=== PATIENT | male | born 1970 | race Caucasian/White ===

== ENCOUNTER 2016-10-04 14:54 | Emergency (ER) | payer OTHER ==
[2016-10-04] MEDS ORDERED: GI COCKTAIL 50ML BTL(HYOSCYAMINE/MAALOX/LIDOCAINE VISCOUS)(1:3:1) As Ordered ONE (15:53)
[2016-10-04] MEDS ORDERED: ONDANSETRON 4MG/2ML VIAL (J2405) As Ordered ONE (15:53)
[2016-10-04 16:07] LABS: BASO # 0.1 K/mm3 (0.0-0.2); EOS # 0.2 K/mm3 (0.0-0.50); EOS % 1.6 % (0.0-3.0); LARGE UNSTAINED CELL # 0.3 K/mm3 (0.0-0.4); LARGE UNSTAINED CELL % 2.8 % (0.0-4.0); LYMPH # 2.8 K/mm3 (1.5-4.5); LYMPH % 26.3 % (24.0-44.0); MEAN CORPUSCULAR HEMOGLOBIN 33.6 pg (27.0-33.0); MEAN CORPUSCULAR HGB CONC 34.7 g/dl (32.0-36.5); MEAN CORPUSCULAR VOLUME 96.9 fl (80.0-96.0); MONO # 0.6 K/mm3 (0.0-0.8); MONO % 6.3 % (0.0-5.0); PLATELET COUNT, AUTOMATED 195 k/mm3 (150-450); WHITE BLOOD COUNT 9.6 K/mm3 (4.0-10.0)
[2016-10-04 16:28] LABS: INR 0.98
[2016-10-04 16:40] LABS: ALBUMIN 4.2 GM/DL (3.2-5.2); ALBUMIN/GLOBULIN RATIO 1.17 (1.00-1.93); ALKALINE PHOSPHATASE 63 U/L (45-117); ALT/SGPT 36 U/L (12-78); AMYLASE 62 U/L (25-115); ANION GAP 8 MEQ/L (8-16); AST/SGOT 25 U/L (15-37); BILIRUBIN,DIRECT 0.1 MG/DL (0.0-0.2); BILIRUBIN,TOTAL 0.3 MG/DL (0.2-1.0); BLOOD UREA NITROGEN 19 MG/DL (7-18); CALCIUM LEVEL 9.8 MG/DL (8.5-10.1); CARBON DIOXIDE LEVEL 30 MEQ/L (21-32); CHLORIDE LEVEL 104 MEQ/L (98-107); CREATININE FOR GFR 1.05 MG/DL (0.70-1.30); GLOMERULAR FILTRATION RATE > 60.0 (>60); GLUCOSE, FASTING 80 MG/DL (70-105); POTASSIUM SERUM 4.4 MEQ/L (3.5-5.1); SODIUM LEVEL 142 MEQ/L (136-145); TOTAL PROTEIN 7.8 GM/DL (6.4-8.2)
--- NOTE | 2016-10-04 17:08 | EDDOCDS ---
Nurse's Notes [facility] Name: Mc Harman Age: 46 yrs Sex: Male : 1970 Arrival Date: 10/04/2016 Time: 14:54 Bed I5 / M5 Private MD: Chris Broderick M Diagnosis: Gastro-esophageal reflux disease;Constipation, unspecified Presentation: 10/04 14:57 Presenting complaint: Patient states: upper abdominal pains since yesterday at 10 am. dy pain in epigastric area with pressure and burning feeling. Adult Sepsis Screening: The patient does not have new or worsening altered mentation. Patient's respiratory rate is less than 22. Systolic blood pressure is greater than 100. Patient has a qSOFA score of 0- Negative Sepsis Screen. Suicide/Homicide risk assessment- the patient denies having any suicidal and/or homicidal ideations and does not present with any other emotional, behavioral or mental health complaints. Status: Patient is not a customer service trainer or dependent. Transition of care: patient was not received from another setting of care. 14:57 Acuity: TERESITA Level 3 dy 14:57 Method Of Arrival: Walkin/Carried/Asstd dy Triage Assessment: 14:59 General: Appears in no apparent distress. Pain: Location: epigastric area. HIV dy screening NA for this visit Offered previously. GI: Reports epigastric pain. Historical: - Allergies: No known drug Allergies; - Home Meds: 1. Claritin 10 mg Oral tab 1 tab once daily 2. Aleve 220 mg Oral tab 1 tab every 12 hours (Last dose: 10/03/2016) - PMHx: Allergies, Seasonal; joint pain; - PSHx: Carpal Tunnel Repair- Bilateral; - Social history: Smoking status: Patient states former smoker of tobacco. No barriers to communication noted, The patient speaks fluent Faroese, Speaks appropriately for age. - Family history: Not pertinent. - : The pt / caregiver states he / she is not on anticoagulants. Home medication list is obtained from the patient. - Exposure Risk Screening:: None identified. Screenin:53 Screening information is obtained from the patient. Fall risk: No risks identified. ck1 Assistance ADL's: requires no assistance with activities of daily living. Abuse/DV Screen: The patient / caregiver reports he/she is: not in a situation that causes fear, pain or injury. Nutritional screening: No deficits noted. Advance Directives: Currently, there is no health care proxy. home support is adequate. Assessment: 15:53 General: Appears in no apparent distress, comfortable, Behavior is appropriate for age, ck1 cooperative. Pain: Location: epigastric area Pain At worst was 6 out of 10 on a pain scale. GI: Abdomen is non- distended Bowel sounds present X 4 quads. Abd is soft and non tender X 4 quads. Reports epigastric pain. : No deficits noted. Derm: Skin is intact, is healthy with good turgor, Skin is pink, warm & dry. 17:06 General: Appears in no apparent distress, comfortable, Behavior is appropriate for age, ck1 cooperative. Pain: Denies pain. Neurological: Level of Consciousness is awake, alert, obeys commands, Oriented to person, place, time. Respiratory: Respiratory effort is unlabored, Respiratory pattern is regular, symmetrical. GI: Denies epigastric pain, nausea, vomiting. : No deficits noted. Derm: Skin is intact, is healthy with good turgor, Skin is pink, warm & dry. Vital Signs: 14:55 BP 148 / 76; Pulse 82; Resp 16; Temp 96.5(O); Pulse Ox 97% ; Weight 95.71 kg; Height 5 cmb ft. 6 in. (167.64 cm); Pain 7/10; 17:04 BP 145 / 86; Pulse 81; Resp 18; Temp 97.1(O); Pulse Ox 97% on R/A; Pain 2/10; jrd 14:55 Body Mass Index 34.06 (95.71 kg, 167.64 cm) cmb Vitals: 14:55 Log In Time: October 04, 2016 at 14:54. cmb ED Course: 14:55 Patient visited by Cherise Cerna. cmb 14:55 Chris Broderick is Private Physician. cmb 14:55 Patient moved to Waiting cmb 14:57 Patient moved to Pre RCE cmb 14:58 Triage Initiated dy 15:28 Patient moved to Triage 3 jf3 15:33 Franki Delong FNP is [facility]. ke 15:33 Patient visited by Franki Delong FNP. ke 15:33 Patient visited by Franki Delong FNP. ke 15:41 Patient moved to I5 / M5 jf3 15:52 Patient visited by Lexie Howell,SALVADOR. ck1 15:52 Amylase Sent. ck1 15:53 The patient / caregiver is instructed regarding the plan of care and ED course. ck1 15:53 Basic Metabolic Profile Sent. ck1 15:53 CBC with Diff Sent. ck1 15:53 Lipase Sent. ck1 15:53 Liver Profile Sent. ck1 15:53 Prothrombin Time Profile\E\INR Sent. ck1 15:53 Inserted saline lock: 20 gauge in right antecubital area and blood collected. The ck1 patient tolerated the procedure well. 16:02 Patient visited by Layne Rivas,SALVADOR. kc3 16:32 Patient visited by Franki Delong FNP. ke 16:55 Chris Broderick is Referral Physician. ke 17:04 Patient visited by Clarke Martinez PCA. jrd 17:06 Discontinued lock intact, bleeding controlled, pressure dressing applied, No ck1 redness/swelling at site. No procedures done that require assistance. Administered Medications: 16:01 Drug: NS 0.9% 1000 ml [sodium chloride 0.9 % intravenous solution] Route: IV; Rate: kc3 bolus; Site: right antecubital; 16:01 Drug: Ondansetron 4 mg [ondansetron HCl 2 mg/mL intravenous solution (2 mL)] Route: kc3 IVP; Site: right antecubital; 16:01 Drug: GI Cocktail - (Alum-Mag Hydroxide-Simeth Suspension 225 mg-200 mg-25 mg/5 mL 30 kc3 ml, Lidocaine Liquid 2 % 10 ml, Hyoscyamine Liquid 10 ml) Route: PO; Order Results: Lab Order: Amylase; SPEC'M 10/04/16 15:51 Test: AMYLASE; Value: 62; Range: 25-115; Units: U/L; Status: F Lab Order: Basic Metabolic Profile; SPEC'M 10/04/16 15:51 Test: GLUCOSE, FASTING; Value: 80; Range: 70-105; Units: MG/DL; Status: F Test: BLOOD UREA NITROGEN; Value: 19; Range: 7-18; Abnormal: Above high normal; Units: MG/DL; Status: F Test: CREATININE FOR GFR; Value: 1.05; Range: 0.70-1.30; Units: MG/DL; Status: F Test: GLOMERULAR FILTRATION RATE; Value: > 60.0; Range: >60; Status: F Test: SODIUM LEVEL; Value: 142; Range: 136-145; Units: MEQ/L; Status: F Test: POTASSIUM SERUM; Value: 4.4; Range: 3.5-5.1; Units: MEQ/L; Status: F Test: CHLORIDE LEVEL; Value: 104; Range: 98-107; Units: MEQ/L; Status: F Test: CARBON DIOXIDE LEVEL; Value: 30; Range: 21-32; Units: MEQ/L; Status: F Test: ANION GAP; Value: 8; Range: 8-16; Units: MEQ/L; Status: F Test: CALCIUM LEVEL; Value: 9.8; Range: 8.5-10.1; Units: MG/DL; Status: F Test Note: ; Units are mL/min/1.73 m2 Chronic Kidney Disease Staging per NKF: Stage I & II GFR >=60 Normal to Mildly Decreased Stage III GFR 30-59 Moderately Decreased Stage IV GFR 15-29 Severely Decreased Stage V GFR <15 Very Little GFR Left ESRD GFR <15 on CUFF SETTER Lab Order: CBC with Diff; SPEC'M 10/04/16 15:51 Test: WHITE BLOOD COUNT; Value: 9.6; Range: 4.0-10.0; Units: K/mm3; Status: F Test: RED BLOOD COUNT; Value: 4.55; Range: 4.30-6.10; Units: M/mm3; Status: F Test: HEMOGLOBIN; Value: 15.3; Range: 14.0-18.0; Units: g/dl; Status: F Test: HEMATOCRIT; Value: 44.1; Range: 42.0-52.0; Units: %; Status: F Test: MEAN CORPUSCULAR VOLUME; Value: 96.9; Range: 80.0-96.0; Abnormal: Above high normal; Units: fl; Status: F Test: MEAN CORPUSCULAR HEMOGLOBIN; Value: 33.6; Range: 27.0-33.0; Abnormal: Above high normal; Units: pg; Status: F Test: MEAN CORPUSCULAR HGB CONC; Value: 34.7; Range: 32.0-36.5; Units: g/dl; Status: F Test: RED CELL DISTRIBUTION WIDTH; Value: 13.0; Range: 11.5-14.5; Units: %; Status: F Test: PLATELET COUNT, AUTOMATED; Value: 195; Range: 150-450; Units: k/mm3; Status: F Test: NEUTROPHILS %; Value: 62.0; Range: 36.0-66.0; Units: %; Status: F Test: LYMPH %; Value: 26.3; Range: 24.0-44.0; Units: %; Status: F Test: MONO %; Value: 6.3; Range: 0.0-5.0; Abnormal: Above high normal; Units: %; Status: F Test: EOS %; Value: 1.6; Range: 0.0-3.0; Units: %; Status: F Test: BASO %; Value: 1.0; Range: 0.0-1.0; Units: %; Status: F Test: LARGE UNSTAINED CELL %; Value: 2.8; Range: 0.0-4.0; Units: %; Status: F Test: NEUTROPHILS #; Value: 6.0; Range: 1.8-7.7; Units: K/mm3; Status: F Test: LYMPH #; Value: 2.8; Range: 1.5-4.5; Units: K/mm3; Status: F Test: MONO #; Value: 0.6; Range: 0.0-0.8; Units: K/mm3; Status: F Test: EOS #; Value: 0.2; Range: 0.0-0.50; Units: K/mm3; Status: F Test: BASO #; Value: 0.1; Range: 0.0-0.2; Units: K/mm3; Status: F Test: LARGE UNSTAINED CELL #; Value: 0.3; Range: 0.0-0.4; Units: K/mm3; Status: F Lab Order: Lipase; SPEC'M 10/04/16 15:51 Test: LIPASE; Value: 253; Range: 73-393; Units: U/L; Status: F Lab Order: Liver Profile; SPEC'M 10/04/16 15:51 Test: AST/SGOT; Value: 25; Range: 15-37; Units: U/L; Status: F Test: ALT/SGPT; Value: 36; Range: 12-78; Units: U/L; Status: F Test: ALKALINE PHOSPHATASE; Value: 63; Range: 45-117; Units: U/L; Status: F Test: BILIRUBIN,TOTAL; Value: 0.3; Range: 0.2-1.0; Units: MG/DL; Status: F Test: BILIRUBIN,DIRECT; Value: 0.1; Range: 0.0-0.2; Units: MG/DL; Status: F Test: TOTAL PROTEIN; Value: 7.8; Range: 6.4-8.2; Units: GM/DL; Status: F Test: ALBUMIN; Value: 4.2; Range: 3.2-5.2; Units: GM/DL; Status: F Test: ALBUMIN/GLOBULIN RATIO; Value: 1.17; Range: 1.00-1.93; Status: F Lab Order: Prothrombin Time Profile\E\INR; SPEC'M 10/04/16 15:51 Test: PROTHROMBIN TIME; Value: 13.1; Range: 12.3-14.5; Units: SECONDS; Status: F Test: INR; Value: 0.98; Status: F Test Note: ; THERAPUTIC HUMAN INR VALUES INDICATIONS NORMAL RANGES PROPHYLAXIS/TREATMENT OF: VENOUS THROMBOSIS 2.0-3.0 PULMONARY EMBOLISM 2.0-3.0 PREVENTION OF SYSTEMIC EMBOLISM FROM: TISSUE HEART VALVES 2.0-3.0 ACUTE MYOCARDIAL INFARCTION 2.0-3.0 VALVULAR HEART DISEASE 2.0-3.0 ATRIAL FIBRILLATION 2.0-3.0 MECHANICAL VALVES(HIGH RISK) 2.5-3.5 RECURRENT MYOCARDIAL INFARCTION 2.5-3.5 Outcome: 16:55 Discharge ordered by Provider. ke 17:06 Discharge Assessment: Patient awake, alert and oriented x 3. No cognitive and/or ck1 functional deficits noted. Patient verbalized understanding of disposition instructions. patient administered narcotics - no. The following High Risk Discharge criteria are identified: None. Discharged to home ambulatory, with significant other. Condition: stable. Discharge instructions given to patient, Instructed on discharge instructions, follow up and referral plans. medication usage, Demonstrated understanding of instructions, medications, Pt was receptive of discharge instructions/ teaching. Prescriptions given X 2. No special radiology studies were completed. Property :Personal belongings accompany Pt. 17:07 Patient left the ED. ck1 Signatures: Colton Wynne, RN RN dy Franki Delong, APARTMENT ASSISTANT MANAGER APARTMENT ASSISTANT MANAGER Lexie CornejoRN RN ck1 Cherise Cerna cmb Clarke Martinez, DARBY RIDING COACH jrd Layne Rivas,RN RN kc3 Manuel Randolph,RN RN jf3 MTDD
--- NOTE | 2016-10-04 17:08 | EDDOCDS ---
Physician Documentation [facility] Name: Mc Harman Age: 46 yrs Sex: Male : 1970 Arrival Date: 10/04/2016 Time: 14:54 Bed I5 / M5 Private MD: Chris Broderick M Disposition: 10/04/16 16:55 Discharged to Home/Self Care. Impression: Gastro-esophageal reflux disease, Constipation, unspecified. - Condition is Stable. - Discharge Instructions: Constipation, Adult, Gastroesophageal Reflux Disease, Adult. - Prescriptions for Zantac 300 mg Oral Tablet - take 1 tablet by ORAL route At bedtime; 30 tablet. Miralax 17 gram/dose - take 17 gram by ORAL route once daily As needed dilute in 8 ounces of water or juice; 1 bottle. - Medication Reconciliation, Local Pharmacy Hours form. - Follow up: Chris Broderick; When: 4 - 5 days; Reason: Recheck today's complaints, Continuance of care. - Problem is an ongoing problem. - Symptoms are unchanged. Historical: - Allergies: No known drug Allergies; - Home Meds: 1. Claritin 10 mg Oral tab 1 tab once daily 2. Aleve 220 mg Oral tab 1 tab every 12 hours (Last dose: 10/03/2016) - PMHx: Allergies, Seasonal; joint pain; - PSHx: Carpal Tunnel Repair- Bilateral; - Social history: Smoking status: Patient states former smoker of tobacco. No barriers to communication noted, The patient speaks fluent Sudanese, Speaks appropriately for age. - Family history: Not pertinent. - : The pt / caregiver states he / she is not on anticoagulants. Home medication list is obtained from the patient. - Exposure Risk Screening:: None identified. Vital Signs: 10/04 14:55 BP 148 / 76; Pulse 82; Resp 16; Temp 96.5(O); Pulse Ox 97% ; Weight 95.71 kg / 211 lbs; cmb Height 5 ft. 6 in. (167.64 cm); Pain 7/10; 17:04 BP 145 / 86; Pulse 81; Resp 18; Temp 97.1(O); Pulse Ox 97% on R/A; Pain 2/10; jrd 14:55 Body Mass Index 34.06 (95.71 kg, 167.64 cm) cmb MDM: 15:39 NS 0.9% 1000 ml IV at bolus once ordered. ke 15:39 Ondansetron 4 mg IVP once ordered. ke 15:39 IV Saline Lock ordered. ke 15:39 Undress patient appropriately for examination ordered. ke 15:39 GI Cocktail - (Alum-Mag Hydroxide-Simeth 30 ml, Lidocaine 10 ml, Hyoscyamine 10 ml) PO ke once; Pre-mixed 50mL unit dose ordered. 15:40 Abdomen, Flat\E\Upright,PA Chest Ordered. EDMS 15:40 Amylase Ordered. EDMS 15:40 Basic Metabolic Profile Ordered. EDMS 15:40 CBC with Diff Ordered. EDMS 15:40 Lipase Ordered. EDMS 15:40 Liver Profile Ordered. EDMS 15:40 Prothrombin Time Profile\E\INR Ordered. EDMS 15:41 NOTHING BY MOUTH+DIET ordered. EDMS 16:52 Basic Metabolic Profile Reviewed. ke 16:52 CBC with Diff Reviewed. ke 16:52 Amylase Reviewed. ke 16:52 Lipase Reviewed. ke 16:52 Liver Profile Reviewed. ke 16:52 Prothrombin Time Profile\E\INR Reviewed. ke Administered Medications: 16:01 Drug: NS 0.9% 1000 ml [sodium chloride 0.9 % intravenous solution] Route: IV; Rate: kc3 bolus; Site: right antecubital; 16:01 Drug: Ondansetron 4 mg [ondansetron HCl 2 mg/mL intravenous solution (2 mL)] Route: kc3 IVP; Site: right antecubital; 16:01 Drug: GI Cocktail - (Alum-Mag Hydroxide-Simeth Suspension 225 mg-200 mg-25 mg/5 mL 30 kc3 ml, Lidocaine Liquid 2 % 10 ml, Hyoscyamine Liquid 10 ml) Route: PO; Signatures: Dispatcher [employer] EDID Colton Wynne, RN Franki Richardson, DATA SECURITY ADMINISTRATOR DATA SECURITY ADMINISTRATOR Lexie Cornejo,RN RN Layne Miller RN kc3 MTDD
--- NOTE | 2016-10-05 17:15 | REP ---
Abdominal series 10/04/2016 Indication: Abdominal pain Comparison: PA and lateral chest 08/03/2015, CT abdomen and pelvis 10/23/2014 PA chest Findings: The cardiomediastinal silhouette is normal. Small amount of epicardial fat is seen in the left cardiophrenic angle. A small amount of bibasilar fibro atelectatic changes are noted, stable. Bones and soft tissues are within normal limits. Impression: mild bibasilar fibro atelectatic changes, stable Normal cardiomediastinal silhouette Flat and upright KUB 10/04/2016 There is moderate diffuse retained colonic stool yet most pronounced within the ascending colon. The bowel gas pattern is nonspecific and there is no free intraperitoneal air. There is mild narrowing within the right hip joint. Impression 1. Moderate diffuse retained colonic stool yet most pronounced within the right colon. No free intraperitoneal air 2. There is mild narrowing within the right hip joint Signed by Kimberli James MD 10/05/2016 05:07 P
--- NOTE | 2016-10-06 18:08 | EDDOCDS ---
Physician Documentation [facility] Name: Mc Harman Age: 46 yrs Sex: Male : 1970 Arrival Date: 10/04/2016 Time: 14:54 Bed I5 / M5 Private MD: Chris Broderick M Disposition: 10/04/16 16:55 Discharged to Home/Self Care. Impression: Gastro-esophageal reflux disease, Constipation, unspecified. - Condition is Stable. - Discharge Instructions: Constipation, Adult, Gastroesophageal Reflux Disease, Adult. - Prescriptions for Zantac 300 mg Oral Tablet - take 1 tablet by ORAL route At bedtime; 30 tablet. Miralax 17 gram/dose - take 17 gram by ORAL route once daily As needed dilute in 8 ounces of water or juice; 1 bottle. - Medication Reconciliation, Local Pharmacy Hours form. - Follow up: Chris Broderick; When: 4 - 5 days; Reason: Recheck today's complaints, Continuance of care. - Problem is an ongoing problem. - Symptoms are unchanged. Historical: - Allergies: No known drug Allergies; - Home Meds: 1. Claritin 10 mg Oral tab 1 tab once daily 2. Aleve 220 mg Oral tab 1 tab every 12 hours (Last dose: 10/03/2016) - PMHx: Allergies, Seasonal; joint pain; - PSHx: Carpal Tunnel Repair- Bilateral; - Social history: Smoking status: Patient states former smoker of tobacco. No barriers to communication noted, The patient speaks fluent Faroese, Speaks appropriately for age. - Family history: Not pertinent. - : The pt / caregiver states he / she is not on anticoagulants. Home medication list is obtained from the patient. - Exposure Risk Screening:: None identified. Vital Signs: 10/04 14:55 BP 148 / 76; Pulse 82; Resp 16; Temp 96.5(O); Pulse Ox 97% ; Weight 95.71 kg / 211 lbs; cmb Height 5 ft. 6 in. (167.64 cm); Pain 7/10; 17:04 BP 145 / 86; Pulse 81; Resp 18; Temp 97.1(O); Pulse Ox 97% on R/A; Pain 2/10; jrd 14:55 Body Mass Index 34.06 (95.71 kg, 167.64 cm) cmb MDM: 15:39 NS 0.9% 1000 ml IV at bolus once ordered. ke 15:39 Ondansetron 4 mg IVP once ordered. ke 15:39 IV Saline Lock ordered. ke 15:39 Undress patient appropriately for examination ordered. ke 15:39 GI Cocktail - (Alum-Mag Hydroxide-Simeth 30 ml, Lidocaine 10 ml, Hyoscyamine 10 ml) PO ke once; Pre-mixed 50mL unit dose ordered. 15:40 Abdomen, Flat\E\Upright,PA Chest Ordered. EDMS 15:40 Amylase Ordered. EDMS 15:40 Basic Metabolic Profile Ordered. EDMS 15:40 CBC with Diff Ordered. EDMS 15:40 Lipase Ordered. EDMS 15:40 Liver Profile Ordered. EDMS 15:40 Prothrombin Time Profile\E\INR Ordered. EDMS 15:41 NOTHING BY MOUTH+DIET ordered. EDMS 16:52 Basic Metabolic Profile Reviewed. ke 16:52 CBC with Diff Reviewed. ke 16:52 Amylase Reviewed. ke 16:52 Lipase Reviewed. ke 16:52 Liver Profile Reviewed. ke 16:52 Prothrombin Time Profile\E\INR Reviewed. ke 17:12 [facility] Payment Agreement was scanned into [employer] and attached to record. [facility] 17:12 Financial registration complete. [facility] 10/05 10:05 T-Sheet-- Draft Copy was scanned into [employer] and attached to record. gb Administered Medications: 10/04 16:01 Drug: NS 0.9% 1000 ml [sodium chloride 0.9 % intravenous solution] Route: IV; Rate: kc3 bolus; Site: right antecubital; 16:01 Drug: Ondansetron 4 mg [ondansetron HCl 2 mg/mL intravenous solution (2 mL)] Route: kc3 IVP; Site: right antecubital; 16:01 Drug: GI Cocktail - (Alum-Mag Hydroxide-Simeth Suspension 225 mg-200 mg-25 mg/5 mL 30 kc3 ml, Lidocaine Liquid 2 % 10 ml, Hyoscyamine Liquid 10 ml) Route: PO; Signatures: Dispatcher [employer] EDMS Laure Ruiz, Reg Reg gb Colton Wynne, RN Franki Richardson, FARM OPERATIONS TECHNICAL DIRECTOR FARM OPERATIONS TECHNICAL DIRECTOR Lexie Cornejo RN RN ck1 Carine Knutson b Layne Rivas RN kc3 The chart was reviewed and I authenticate all verbal orders and agree with the evaluation and treatment provided.Attachments: 17:12 [facility] Payment Agreement gjb 10/05 10:05 T-Sheet-- Draft Copy gb Chart Complete MTDD
--- NOTE | 2016-10-06 18:08 | EDDOCDS ---
Physician Documentation [facility] Name: Mc Haramn Age: 46 yrs Sex: Male : 1970 Arrival Date: 10/04/2016 Time: 14:54 Bed I5 / M5 Private MD: Chris Broderick M Disposition: 10/04/16 16:55 Discharged to Home/Self Care. Impression: Gastro-esophageal reflux disease, Constipation, unspecified. - Condition is Stable. - Discharge Instructions: Constipation, Adult, Gastroesophageal Reflux Disease, Adult. - Prescriptions for Zantac 300 mg Oral Tablet - take 1 tablet by ORAL route At bedtime; 30 tablet. Miralax 17 gram/dose - take 17 gram by ORAL route once daily As needed dilute in 8 ounces of water or juice; 1 bottle. - Medication Reconciliation, Local Pharmacy Hours form. - Follow up: Chris Broderick; When: 4 - 5 days; Reason: Recheck today's complaints, Continuance of care. - Problem is an ongoing problem. - Symptoms are unchanged. Historical: - Allergies: No known drug Allergies; - Home Meds: 1. Claritin 10 mg Oral tab 1 tab once daily 2. Aleve 220 mg Oral tab 1 tab every 12 hours (Last dose: 10/03/2016) - PMHx: Allergies, Seasonal; joint pain; - PSHx: Carpal Tunnel Repair- Bilateral; - Social history: Smoking status: Patient states former smoker of tobacco. No barriers to communication noted, The patient speaks fluent Lao, Speaks appropriately for age. - Family history: Not pertinent. - : The pt / caregiver states he / she is not on anticoagulants. Home medication list is obtained from the patient. - Exposure Risk Screening:: None identified. Vital Signs: 10/04 14:55 BP 148 / 76; Pulse 82; Resp 16; Temp 96.5(O); Pulse Ox 97% ; Weight 95.71 kg / 211 lbs; cmb Height 5 ft. 6 in. (167.64 cm); Pain 7/10; 17:04 BP 145 / 86; Pulse 81; Resp 18; Temp 97.1(O); Pulse Ox 97% on R/A; Pain 2/10; jrd 14:55 Body Mass Index 34.06 (95.71 kg, 167.64 cm) cmb MDM: 15:39 NS 0.9% 1000 ml IV at bolus once ordered. ke 15:39 Ondansetron 4 mg IVP once ordered. ke 15:39 IV Saline Lock ordered. ke 15:39 Undress patient appropriately for examination ordered. ke 15:39 GI Cocktail - (Alum-Mag Hydroxide-Simeth 30 ml, Lidocaine 10 ml, Hyoscyamine 10 ml) PO ke once; Pre-mixed 50mL unit dose ordered. 15:40 Abdomen, Flat\E\Upright,PA Chest Ordered. EDMS 15:40 Amylase Ordered. EDMS 15:40 Basic Metabolic Profile Ordered. EDMS 15:40 CBC with Diff Ordered. EDMS 15:40 Lipase Ordered. EDMS 15:40 Liver Profile Ordered. EDMS 15:40 Prothrombin Time Profile\E\INR Ordered. EDMS 15:41 NOTHING BY MOUTH+DIET ordered. EDMS 16:52 Basic Metabolic Profile Reviewed. ke 16:52 CBC with Diff Reviewed. ke 16:52 Amylase Reviewed. ke 16:52 Lipase Reviewed. ke 16:52 Liver Profile Reviewed. ke 16:52 Prothrombin Time Profile\E\INR Reviewed. ke 17:12 [facility] Payment Agreement was scanned into [employer] and attached to record. [facility] 17:12 Financial registration complete. [facility] 10/05 10:05 T-Sheet-- Draft Copy was scanned into [employer] and attached to record. gb Administered Medications: 10/04 16:01 Drug: NS 0.9% 1000 ml [sodium chloride 0.9 % intravenous solution] Route: IV; Rate: kc3 bolus; Site: right antecubital; 16:01 Drug: Ondansetron 4 mg [ondansetron HCl 2 mg/mL intravenous solution (2 mL)] Route: kc3 IVP; Site: right antecubital; 16:01 Drug: GI Cocktail - (Alum-Mag Hydroxide-Simeth Suspension 225 mg-200 mg-25 mg/5 mL 30 kc3 ml, Lidocaine Liquid 2 % 10 ml, Hyoscyamine Liquid 10 ml) Route: PO; Signatures: Dispatcher [employer] EDMS Laure Ruiz, Reg Reg gb Colton Wynne, RN Franki Richardson, SALES STORE CHECKER SALES STORE CHECKER Lexie Cornejo RN RN ck1 Carine Knutson b Layne Rivas RN kc3 The chart was reviewed and I authenticate all verbal orders and agree with the evaluation and treatment provided.Attachments: 17:12 [facility] Payment Agreement gjb 10/05 10:05 T-Sheet-- Draft Copy gb Chart Complete MTDD
--- NOTE | 2016-10-06 18:08 | EDDOCDS ---
Nurse's Notes [facility] Name: Mc Harman Age: 46 yrs Sex: Male : 1970 Arrival Date: 10/04/2016 Time: 14:54 Bed I5 / M5 Private MD: Chris Broderick M Diagnosis: Gastro-esophageal reflux disease;Constipation, unspecified Presentation: 10/04 14:57 Presenting complaint: Patient states: upper abdominal pains since yesterday at 10 am. dy pain in epigastric area with pressure and burning feeling. Adult Sepsis Screening: The patient does not have new or worsening altered mentation. Patient's respiratory rate is less than 22. Systolic blood pressure is greater than 100. Patient has a qSOFA score of 0- Negative Sepsis Screen. Suicide/Homicide risk assessment- the patient denies having any suicidal and/or homicidal ideations and does not present with any other emotional, behavioral or mental health complaints. Status: Patient is not a interlibrary loan services librarian or dependent. Transition of care: patient was not received from another setting of care. 14:57 Acuity: TERESITA Level 3 dy 14:57 Method Of Arrival: Walkin/Carried/Asstd dy Triage Assessment: 14:59 General: Appears in no apparent distress. Pain: Location: epigastric area. HIV dy screening NA for this visit Offered previously. GI: Reports epigastric pain. Historical: - Allergies: No known drug Allergies; - Home Meds: 1. Claritin 10 mg Oral tab 1 tab once daily 2. Aleve 220 mg Oral tab 1 tab every 12 hours (Last dose: 10/03/2016) - PMHx: Allergies, Seasonal; joint pain; - PSHx: Carpal Tunnel Repair- Bilateral; - Social history: Smoking status: Patient states former smoker of tobacco. No barriers to communication noted, The patient speaks fluent Macedonian, Speaks appropriately for age. - Family history: Not pertinent. - : The pt / caregiver states he / she is not on anticoagulants. Home medication list is obtained from the patient. - Exposure Risk Screening:: None identified. Screenin:53 Screening information is obtained from the patient. Fall risk: No risks identified. ck1 Assistance ADL's: requires no assistance with activities of daily living. Abuse/DV Screen: The patient / caregiver reports he/she is: not in a situation that causes fear, pain or injury. Nutritional screening: No deficits noted. Advance Directives: Currently, there is no health care proxy. home support is adequate. Assessment: 15:53 General: Appears in no apparent distress, comfortable, Behavior is appropriate for age, ck1 cooperative. Pain: Location: epigastric area Pain At worst was 6 out of 10 on a pain scale. GI: Abdomen is non- distended Bowel sounds present X 4 quads. Abd is soft and non tender X 4 quads. Reports epigastric pain. : No deficits noted. Derm: Skin is intact, is healthy with good turgor, Skin is pink, warm & dry. 17:06 General: Appears in no apparent distress, comfortable, Behavior is appropriate for age, ck1 cooperative. Pain: Denies pain. Neurological: Level of Consciousness is awake, alert, obeys commands, Oriented to person, place, time. Respiratory: Respiratory effort is unlabored, Respiratory pattern is regular, symmetrical. GI: Denies epigastric pain, nausea, vomiting. : No deficits noted. Derm: Skin is intact, is healthy with good turgor, Skin is pink, warm & dry. Vital Signs: 14:55 BP 148 / 76; Pulse 82; Resp 16; Temp 96.5(O); Pulse Ox 97% ; Weight 95.71 kg; Height 5 cmb ft. 6 in. (167.64 cm); Pain 7/10; 17:04 BP 145 / 86; Pulse 81; Resp 18; Temp 97.1(O); Pulse Ox 97% on R/A; Pain 2/10; jrd 14:55 Body Mass Index 34.06 (95.71 kg, 167.64 cm) cmb Vitals: 14:55 Log In Time: October 04, 2016 at 14:54. cmb ED Course: 14:55 Patient visited by Cherise Cerna. cmb 14:55 Chris Broderick is Private Physician. cmb 14:55 Patient moved to Waiting cmb 14:57 Patient moved to Pre RCE cmb 14:58 Triage Initiated dy 15:28 Patient moved to Triage 3 jf3 15:33 Franki Delong FNP is [facility]. ke 15:33 Patient visited by Franki Delong FNP. ke 15:33 Patient visited by Franki Delong FNP. ke 15:41 Patient moved to I5 / M5 jf3 15:52 Patient visited by Lexie Howell,SALVADOR. ck1 15:52 Amylase Sent. ck1 15:53 The patient / caregiver is instructed regarding the plan of care and ED course. ck1 15:53 Basic Metabolic Profile Sent. ck1 15:53 CBC with Diff Sent. ck1 15:53 Lipase Sent. ck1 15:53 Liver Profile Sent. ck1 15:53 Prothrombin Time Profile\E\INR Sent. ck1 15:53 Inserted saline lock: 20 gauge in right antecubital area and blood collected. The ck1 patient tolerated the procedure well. 16:02 Patient visited by Layne Rivas,SALVADOR. kc3 16:32 Patient visited by Franki Delong FNP. ke 16:55 Chris Broderick is Referral Physician. ke 17:04 Patient visited by Clarke Martinez, DARBY. jrd 17:06 Discontinued lock intact, bleeding controlled, pressure dressing applied, No ck1 redness/swelling at site. No procedures done that require assistance. 17:12 [facility] Agreement was scanned into [employer] and attached to record. gjb 10/05 10:05 T-Sheet-- Draft Copy was scanned into [employer] and attached to record. gb 17:33 Abdomen, Flat\E\Upright,PA Chest Returned. EDMS Administered Medications: 10/04 16:01 Drug: NS 0.9% 1000 ml [sodium chloride 0.9 % intravenous solution] Route: IV; Rate: kc3 bolus; Site: right antecubital; 16:01 Drug: Ondansetron 4 mg [ondansetron HCl 2 mg/mL intravenous solution (2 mL)] Route: kc3 IVP; Site: right antecubital; 16:01 Drug: GI Cocktail - (Alum-Mag Hydroxide-Simeth Suspension 225 mg-200 mg-25 mg/5 mL 30 kc3 ml, Lidocaine Liquid 2 % 10 ml, Hyoscyamine Liquid 10 ml) Route: PO; Order Results: Lab Order: Amylase; SPEC'M 10/04/16 15:51 Test: AMYLASE; Value: 62; Range: 25-115; Units: U/L; Status: F Lab Order: Basic Metabolic Profile; SPEC'M 10/04/16 15:51 Test: GLUCOSE, FASTING; Value: 80; Range: 70-105; Units: MG/DL; Status: F Test: BLOOD UREA NITROGEN; Value: 19; Range: 7-18; Abnormal: Above high normal; Units: MG/DL; Status: F Test: CREATININE FOR GFR; Value: 1.05; Range: 0.70-1.30; Units: MG/DL; Status: F Test: GLOMERULAR FILTRATION RATE; Value: > 60.0; Range: >60; Status: F Test: SODIUM LEVEL; Value: 142; Range: 136-145; Units: MEQ/L; Status: F Test: POTASSIUM SERUM; Value: 4.4; Range: 3.5-5.1; Units: MEQ/L; Status: F Test: CHLORIDE LEVEL; Value: 104; Range: 98-107; Units: MEQ/L; Status: F Test: CARBON DIOXIDE LEVEL; Value: 30; Range: 21-32; Units: MEQ/L; Status: F Test: ANION GAP; Value: 8; Range: 8-16; Units: MEQ/L; Status: F Test: CALCIUM LEVEL; Value: 9.8; Range: 8.5-10.1; Units: MG/DL; Status: F Test Note: ; Units are mL/min/1.73 m2 Chronic Kidney Disease Staging per NKF: Stage I & II GFR >=60 Normal to Mildly Decreased Stage III GFR 30-59 Moderately Decreased Stage IV GFR 15-29 Severely Decreased Stage V GFR <15 Very Little GFR Left ESRD GFR <15 on NURSES ASSISTANT Lab Order: CBC with Diff; SPEC'M 10/04/16 15:51 Test: WHITE BLOOD COUNT; Value: 9.6; Range: 4.0-10.0; Units: K/mm3; Status: F Test: RED BLOOD COUNT; Value: 4.55; Range: 4.30-6.10; Units: M/mm3; Status: F Test: HEMOGLOBIN; Value: 15.3; Range: 14.0-18.0; Units: g/dl; Status: F Test: HEMATOCRIT; Value: 44.1; Range: 42.0-52.0; Units: %; Status: F Test: MEAN CORPUSCULAR VOLUME; Value: 96.9; Range: 80.0-96.0; Abnormal: Above high normal; Units: fl; Status: F Test: MEAN CORPUSCULAR HEMOGLOBIN; Value: 33.6; Range: 27.0-33.0; Abnormal: Above high normal; Units: pg; Status: F Test: MEAN CORPUSCULAR HGB CONC; Value: 34.7; Range: 32.0-36.5; Units: g/dl; Status: F Test: RED CELL DISTRIBUTION WIDTH; Value: 13.0; Range: 11.5-14.5; Units: %; Status: F Test: PLATELET COUNT, AUTOMATED; Value: 195; Range: 150-450; Units: k/mm3; Status: F Test: NEUTROPHILS %; Value: 62.0; Range: 36.0-66.0; Units: %; Status: F Test: LYMPH %; Value: 26.3; Range: 24.0-44.0; Units: %; Status: F Test: MONO %; Value: 6.3; Range: 0.0-5.0; Abnormal: Above high normal; Units: %; Status: F Test: EOS %; Value: 1.6; Range: 0.0-3.0; Units: %; Status: F Test: BASO %; Value: 1.0; Range: 0.0-1.0; Units: %; Status: F Test: LARGE UNSTAINED CELL %; Value: 2.8; Range: 0.0-4.0; Units: %; Status: F Test: NEUTROPHILS #; Value: 6.0; Range: 1.8-7.7; Units: K/mm3; Status: F Test: LYMPH #; Value: 2.8; Range: 1.5-4.5; Units: K/mm3; Status: F Test: MONO #; Value: 0.6; Range: 0.0-0.8; Units: K/mm3; Status: F Test: EOS #; Value: 0.2; Range: 0.0-0.50; Units: K/mm3; Status: F Test: BASO #; Value: 0.1; Range: 0.0-0.2; Units: K/mm3; Status: F Test: LARGE UNSTAINED CELL #; Value: 0.3; Range: 0.0-0.4; Units: K/mm3; Status: F Lab Order: Lipase; SPEC'M 10/04/16 15:51 Test: LIPASE; Value: 253; Range: 73-393; Units: U/L; Status: F Lab Order: Liver Profile; SPEC'M 10/04/16 15:51 Test: AST/SGOT; Value: 25; Range: 15-37; Units: U/L; Status: F Test: ALT/SGPT; Value: 36; Range: 12-78; Units: U/L; Status: F Test: ALKALINE PHOSPHATASE; Value: 63; Range: 45-117; Units: U/L; Status: F Test: BILIRUBIN,TOTAL; Value: 0.3; Range: 0.2-1.0; Units: MG/DL; Status: F Test: BILIRUBIN,DIRECT; Value: 0.1; Range: 0.0-0.2; Units: MG/DL; Status: F Test: TOTAL PROTEIN; Value: 7.8; Range: 6.4-8.2; Units: GM/DL; Status: F Test: ALBUMIN; Value: 4.2; Range: 3.2-5.2; Units: GM/DL; Status: F Test: ALBUMIN/GLOBULIN RATIO; Value: 1.17; Range: 1.00-1.93; Status: F Lab Order: Prothrombin Time Profile\E\INR; SPEC'M 10/04/16 15:51 Test: PROTHROMBIN TIME; Value: 13.1; Range: 12.3-14.5; Units: SECONDS; Status: F Test: INR; Value: 0.98; Status: F Test Note: ; THERAPUTIC HUMAN INR VALUES INDICATIONS NORMAL RANGES PROPHYLAXIS/TREATMENT OF: VENOUS THROMBOSIS 2.0-3.0 PULMONARY EMBOLISM 2.0-3.0 PREVENTION OF SYSTEMIC EMBOLISM FROM: TISSUE HEART VALVES 2.0-3.0 ACUTE MYOCARDIAL INFARCTION 2.0-3.0 VALVULAR HEART DISEASE 2.0-3.0 ATRIAL FIBRILLATION 2.0-3.0 MECHANICAL VALVES(HIGH RISK) 2.5-3.5 RECURRENT MYOCARDIAL INFARCTION 2.5-3.5 Radiology Order: Abdomen, Flat\E\Upright,PA Chest Test: Abdomen, Flat\E\Upright,PA Chest REASON FOR EXAMINATION: Abdomen Pain; Abdominal series 10/04/2016; ; Indication: Abdominal pain; ; Comparison: PA and lateral chest 08/03/2015, CT abdomen and pelvis 10/23/2014; ; PA chest; ; Findings: The cardiomediastinal silhouette is normal. Small amount of epicardial; fat is seen in the left cardiophrenic angle. A small amount of bibasilar fibro; atelectatic changes are noted, stable.; ; Bones and soft tissues are within normal limits.; ; Impression: mild bibasilar fibro atelectatic changes, stable; ; Normal cardiomediastinal silhouette; ; Flat and upright KUB 10/04/2016; ; There is moderate diffuse retained colonic stool yet most pronounced within the; ascending colon. The bowel gas pattern is nonspecific and there is no free; intraperitoneal air. There is mild narrowing within the right hip joint.; ; Impression; 1. Moderate diffuse retained colonic stool yet most pronounced within the right; colon. No free intraperitoneal air; 2. There is mild narrowing within the right hip joint; ; ; ; ; Signed by; Kimberli James MD 10/05/2016 05:07 P; Outcome: 16:55 Discharge ordered by Provider. ke 17:06 Discharge Assessment: Patient awake, alert and oriented x 3. No cognitive and/or ck1 functional deficits noted. Patient verbalized understanding of disposition instructions. patient administered narcotics - no. The following High Risk Discharge criteria are identified: None. Discharged to home ambulatory, with significant other. Condition: stable. Discharge instructions given to patient, Instructed on discharge instructions, follow up and referral plans. medication usage, Demonstrated understanding of instructions, medications, Pt was receptive of discharge instructions/ teaching. Prescriptions given X 2. No special radiology studies were completed. Property :Personal belongings accompany Pt. 17:07 Patient left the ED. ck1 Signatures: Dispatcher [employer] EDMS Laure Ruiz, Reg Reg Colton Cormier, RN RN Franki Silvestre, ASSEMBLING INSPECTOR ASSEMBLING INSPECTOR Lexie CornejoRN RN ck1 Cherise Cerna Joseph, DARBY FINE GRADE BULLDOZER OPERATOR jrd Layne Rivas,SALVADOR RN kc3 Manuel Randolph,SALVADOR RN jf3 Carine Knutson Chart Complete MTDD
== END 2016-10-04 17:07 | disposition home or self-care (01) ==
LOC: M ED 14:54
DX: K21.9 Gastro-esophageal reflux disease without esophagitis (principal); K59.00 Constipation, unspecified; J30.2 Other seasonal allergic rhinitis; M25.50 Pain in unspecified joint; Z87.891 Personal history of nicotine dependence; Z79.899 Other long term (current) drug therapy
CPT/HCPCS: 36415; 74022; 80048; 80076; 82150; 83690; 85025; 85610; 96374; 99284; J2405

== ENCOUNTER → 2018-12-25 | Outpatient (REF) | payer OTHER ==
[2018-12-25 13:06] LABS: ALBUMIN 4.4 GM/DL (3.2-5.2); ALT/SGPT 47 U/L (12-78); BILIRUBIN,TOTAL 0.4 MG/DL (0.2-1.0); BLOOD UREA NITROGEN 17 MG/DL (7-18); CALCIUM LEVEL 9.1 MG/DL (8.5-10.1); CARBON DIOXIDE LEVEL 25 MEQ/L (21-32); CHLORIDE LEVEL 107 MEQ/L (98-107); CHOLESTEROL LEVEL 211 MG/DL (<200); CREATININE FOR GFR 1.06 MG/DL (0.70-1.30); FREE T4 1.07 NG/DL (0.76-1.46); GLOMERULAR FILTRATION RATE > 60.0 (>56); GLUCOSE, FASTING 90 MG/DL (70-100); HDL CHOLESTEROL 50 MG/DL (>40); LDL CHOLESTEROL 109 MG/DL (<100); NON-HDL-C 161 MG/DL; POTASSIUM SERUM 4.9 MEQ/L (3.5-5.1); SODIUM LEVEL 140 MEQ/L (136-145); TOTAL PROTEIN 8.1 GM/DL (6.4-8.2); TRIGLYCERIDES LEVEL 261 MG/DL (<150)
[2018-12-25 14:06] LABS: BASO % 0.5 % (0.0-1.0); EOS # 0.1 10^3/uL (0.0-0.50); HEMATOCRIT 44.7 % (42.0-52.0); LYMPH # 2.1 10^3/uL (1.5-4.5); LYMPH % 37.7 % (24.0-44.0); MEAN CORPUSCULAR HEMOGLOBIN 33.6 pg (27.0-33.0); MEAN CORPUSCULAR HGB CONC 33.6 g/dl (32.0-36.5); MEAN CORPUSCULAR VOLUME 100.2 fl (80.0-96.0); MONO # 0.6 10^3/uL (0.0-0.8); MONO % 11.4 % (0.0-5.0); NEUTROPHILS # 2.7 10^3/uL (1.8-7.7); PLATELET COUNT, AUTOMATED 202 10^3/uL (150-450); RED BLOOD COUNT 4.46 10^6/uL (4.30-6.10); WHITE BLOOD COUNT 5.6 10^3/uL (4.0-10.0)
== END ==
LOC: M LAB REF 11:52
PROVIDERS: ATTEND Physician Assistant Medical
DX: R53.83 Other fatigue (principal); I10 Essential (primary) hypertension; E78.2 Mixed hyperlipidemia